=== PATIENT | female | born 1940 | race African-American/Black ===

== ENCOUNTER 2018-06-15 16:04 | Emergency (ER) | payer MEDICARE, OTHER ==
[~2018-06-15] VITALS: Ht 167.6 cm; Wt 61.0 kg
[2018-06-15 18:08] LABS: CHLORIDE 104 mEq/L (98-107)
[2018-06-15 18:09] LABS: PROTHROMBIN TIME 10.4 sec (9.1-11.1)
[2018-06-15 18:10] LABS: BASOPHILS % 0.6 % (0.0-2.0); HEMATOCRIT. 39.9 % (36.0-48.0); HEMOGLOBIN. 13.3 g/dL (12.0-16.0); LYMPHOCYTES % 19.9 % (20.0-50.0); MEAN CORPUSCULAR HEMOGLOBIN 28.4 pg (28.0-32.0); MEAN CORPUSCULAR VOLUME 85.4 fL (81.0-99.0); MEAN PLATELET VOLUME 9.7 fl (7.4-10.4); MONOCYTES % 5.8 % (2.0-8.0); NEUTROPHILS % 72.7 % (40.0-76.0); PLATELET 223 x1000/uL (130-400); RED BLOOD CELL COUNT 4.67 mill/uL (4.2-5.4); RED CELL DISTRIBUTION WIDTH 14.9 % (11.6-14.6)
[2018-06-15] MEDS ORDERED: ALBUTEROL (0.083%) 2.5MG/3ML NEB HHN STA (18:48)
[2018-06-15] MEDS ORDERED: PREDNISONE 20MG TABLET PO STA (18:48)
[2018-06-15] MEDS ORDERED: IPRATROPIUM BROMIDE (0.02%) 0.5MG/2.5ML NEB HHN STA (18:48)
[2018-06-15] MEDS ORDERED: ACETAMINOPHEN 325MG TABLET PO ONE (21:15)
[2018-06-15] MEDS ORDERED: TRAMADOL 50MG TABLET PO ONE (21:45)
[2018-06-15 22:10] VITALS: BP 120/81
== END 2018-06-15 22:30 | disposition home or self-care (01) ==
LOC: ER 16:04
DX: J40 Bronchitis, not specified as acute or chronic (principal); R53.1 Weakness; E11.9 Type 2 diabetes mellitus without complications; I10 Essential (primary) hypertension; Z86.73 Personal history of transient ischemic attack (TIA), and cerebral infarction without residual deficits; R41.82 Altered mental status, unspecified
CPT/HCPCS: 36415; 70450; 71045; 80053; 84484; 85025; 85610; 93005; 94640; 99285; J7512; J7611

== ENCOUNTER → 2020-01-05 | Outpatient (CLI) | payer MEDICARE, OTHER ==
[~2020-01-05] MED LIST: REGADENOSON 0.4 MG/5 ML IV SCH
== END | disposition home or self-care (01) ==
LOC: NM 07:13
PROVIDERS: ATTEND Internal Medicine Cardiovascular Disease
DX: J44.9 Chronic obstructive pulmonary disease, unspecified (principal); E78.00 Pure hypercholesterolemia, unspecified; R00.2 Palpitations
CPT/HCPCS: 78452; 93017; A9500; J2785

== ENCOUNTER 2020-05-08 02:42 | Emergency (ER) | payer MEDICARE, MEDICAID ==
[~2020-05-08] VITALS: Ht 170.2 cm; Wt 71.0 kg
[2020-05-08 05:58] LABS: CHLORIDE 109 mEq/L (98-107)
[2020-05-08 06:00] LABS: BASOPHILS % 0.8 % (0.0-2.0); EOSINOPHILS % 0.7 % (0.0-5.0); HEMATOCRIT. 38.7 % (36.0-48.0); HEMOGLOBIN. 13.1 g/dL (12.0-16.0); LYMPHOCYTES % 25.2 % (20.0-50.0); MEAN CORPUSCULAR HEMOGLOBIN 29.1 pg (28.0-32.0); MEAN CORPUSCULAR VOLUME 86.1 fL (81.0-99.0); MEAN PLATELET VOLUME 10.3 fl (7.4-10.4); MONOCYTES % 7.7 % (2.0-8.0); NEUTROPHILS % 65.6 % (40.0-76.0); PLATELET 180 x1000/uL (130-400); RED CELL DISTRIBUTION WIDTH 15.7 % (11.6-14.6)
[2020-05-08] MEDS ORDERED: HYDRALAZINE 20MG/ML VIAL IV ONE (06:45)
[2020-05-08 08:32] VITALS: BP 169/70
== END 2020-05-08 10:37 | disposition home or self-care (01) ==
LOC: ER 02:42
DX: I10 Essential (primary) hypertension (principal); E11.9 Type 2 diabetes mellitus without complications
CPT/HCPCS: 36415; 80053; 85025; 93005; 96374; 99285; J0360

== ENCOUNTER 2021-04-09 01:01 | Inpatient (IN) | payer MEDICARE, OTHER ==
[~2021-04-09] VITALS: Ht 182.9 cm; Wt 66.2 kg
[2021-04-09 01:53] LABS: BASOPHILS % 0.6 % (0.0-2.0); EOSINOPHILS % 1.3 % (0.0-5.0); HEMATOCRIT. 40.6 % (36.0-48.0); HEMOGLOBIN. 13.3 g/dL (12.0-16.0); LYMPHOCYTES % 25.1 % (20.0-50.0); MEAN CORPUSCULAR VOLUME 85.3 fL (81.0-99.0); MEAN PLATELET VOLUME 9.4 fl (7.4-10.4); MONOCYTES % 8.6 % (2.0-8.0); NEUTROPHILS % 64.4 % (40.0-76.0); PLATELET 214 x1000/uL (130-400); RED BLOOD CELL COUNT 4.76 mill/uL (4.2-5.4); RED CELL DISTRIBUTION WIDTH 15.5 % (11.6-14.6)
[2021-04-09 01:53] LABS: CLARITY URINE CLEAR (CLEAR); COLOR URINE YELLOW (YELLOW); KETONES URINE NEGATIVE (NEGATIVE); LEUKOCYTE ESTERASE URINE 1+ (NEGATIVE); NITRITE URINE NEGATIVE (NEGATIVE); OCCULT BLOOD URINE NEGATIVE (NEGATIVE); PH URINE 6.5 (4.5-8.0); PROTEIN URINE NEGATIVE (NEGATIVE); SPECIFIC GRAVITY URINE 1.005 (1.005-1.030); UROBILINOGEN URINE 0.2 E.U./dL (0.2-1.0)
[2021-04-09 01:57] LABS: CHLORIDE 97 mEq/L (98-107)
[2021-04-09 02:01] LABS: ETHANOL BLOOD < 10 mg/dL
[2021-04-09 02:04] LABS: LDL CHOLESTEROL 102 mg/dL (5-100)
[2021-04-09 02:08] LABS: *AMPHETAMINES SCREEN URINE NEGATIVE (NEGATIVE); *BARBITURATES SCREEN URINE NEGATIVE (NEGATIVE); *BENZODIAZEPINES SCREEN URINE NEGATIVE (NEGATIVE); *COCAINE SCREEN URINE NEGATIVE (NEGATIVE); CANNABINOID URINE SCREEN NEGATIVE (NEGATIVE); PHENCYCLIDINE URINE SCREEN NEGATIVE (NEGATIVE)
[2021-04-09 02:09] LABS: METHADONE URINE SCREEN NEGATIVE (NEGATIVE); OPIATES URINE SCREEN NEGATIVE (NEGATIVE)
[2021-04-09 02:18] LABS: PROTHROMBIN TIME 10.7 sec (9.6-11.0)
[2021-04-09 08:20] VITALS: BP 152/74
[2021-04-09] MEDS ORDERED: CHOL400D7 PO (09:23)
[2021-04-09] MEDS ORDERED: CLOP-31 PO (09:23)
[2021-04-09] MEDS ORDERED: METF-873 PO (09:23)
[2021-04-09] MEDS ORDERED: GLIP5TAB12 MT (09:23)
[2021-04-09] MEDS ORDERED: MAGN200T5 PO (09:23)
[2021-04-09] MEDS ORDERED: ASPI-1497 PO (09:23)
[2021-04-09] MEDS ORDERED: PRO1 PO (09:23)
[2021-04-09] MEDS ORDERED: DEXTROSE 50% WATER 50ML SYRINGE IV PRN (10:30)
[2021-04-09] MEDS ORDERED: ONDANSETRON HCL 4MG/2ML INJ IV PRN (10:30)
[2021-04-09] MEDS ORDERED: ACETAMINOPHEN 325MG TABLET PO PRN (10:30)
[2021-04-09] MEDS ORDERED: LORAZEPAM 2MG/ML CPJ IV SCH (11:00)
[2021-04-09] MEDS: BLOOD SUGAR DIAGNOSTIC STRIP TEST SCH ×3 (11:43→21:09)
[2021-04-09 12:00] VITALS: BP 161/65
[2021-04-09] MEDS: INSULIN LISPRO 100 UNITS/ML SUBCUT SCH ×3 (12:30→21:07)
[2021-04-09] MEDS: ENOXAPARIN 40MG/0.4ML SYR SUBCUT SCH (12:30)
[2021-04-09 16:00] VITALS: BP 146/83
[2021-04-09] MEDS: SODIUM CHLORIDE 0.9% 1,000 ML IV SCH (18:32)
[2021-04-09 20:00] VITALS: BP 149/75
[2021-04-09] MEDS: ATORVASTATIN CALCIUM 40MG TABLET PO SCH (21:09)
[2021-04-10] VITALS (8 sets, daily range): BP systolic 138–173; BP diastolic 59–82
[2021-04-10] MEDS: BLOOD SUGAR DIAGNOSTIC STRIP TEST SCH ×4 (06:23→20:53)
[2021-04-10] MEDS: SODIUM CHLORIDE 0.9% 1,000 ML IV SCH ×2 (06:23→19:40)
[2021-04-10] MEDS: INSULIN LISPRO 100 UNITS/ML SUBCUT SCH ×4 (06:23→20:53)
[2021-04-10 06:35] LABS: BASOPHILS % 0.7 % (0.0-2.0); EOSINOPHILS % 2.2 % (0.0-5.0); HEMOGLOBIN. 11.6 g/dL (12.0-16.0); LYMPHOCYTES % 28.1 % (20.0-50.0); MEAN CORPUSCULAR HEMOGLOBIN 28.3 pg (28.0-32.0); MEAN CORPUSCULAR VOLUME 85.5 fL (81.0-99.0); MEAN PLATELET VOLUME 9.3 fl (7.4-10.4); MONOCYTES % 11.2 % (2.0-8.0); NEUTROPHILS % 57.8 % (40.0-76.0); PLATELET 185 x1000/uL (130-400); RED CELL DISTRIBUTION WIDTH 15.5 % (11.6-14.6)
[2021-04-10 06:36] LABS: CHLORIDE 109 mEq/L (98-107)
[2021-04-10] MEDS: ASPIRIN 81MG TABLET PO SCH (09:33)
[2021-04-10] MEDS: ENOXAPARIN 40MG/0.4ML SYR SUBCUT SCH (10:19)
[2021-04-10] MEDS ORDERED: LORAZEPAM 2MG/ML CPJ IV SCH (15:00)
[2021-04-10] MEDS: ATORVASTATIN CALCIUM 40MG TABLET PO SCH (20:53)
[2021-04-11] VITALS: BP 144/65
[2021-04-11 04:00] VITALS: BP 149/88
[2021-04-11] MEDS: INSULIN LISPRO 100 UNITS/ML SUBCUT SCH ×3 (06:51→16:48)
[2021-04-11] MEDS: BLOOD SUGAR DIAGNOSTIC STRIP TEST SCH ×3 (06:51→16:48)
[2021-04-11 08:00] VITALS: BP 165/75
[2021-04-11] MEDS: SODIUM CHLORIDE 0.9% 1,000 ML IV SCH (09:47)
[2021-04-11] MEDS: ASPIRIN 81MG TABLET PO SCH (09:47)
[2021-04-11] MEDS: ENOXAPARIN 40MG/0.4ML SYR SUBCUT SCH (11:28)
[2021-04-11 12:00] VITALS: BP 171/80
[2021-04-11] MEDS ORDERED: AMLODIPINE 10MG TABLET PO SCH (12:30)
[2021-04-11 14:10] VITALS: BP 142/68
[2021-04-11 16:00] VITALS: BP 142/68
[2021-04-12] MEDS ORDERED: ENOXAPARIN 40MG/0.4ML SYR SUBCUT SCH (09:00)
== END 2021-04-11 19:59 | disposition home health service (06) | DRG 47 ==
LOC: ER 01:01 → 8WST 05:35 → EDBEDREQSVC 05:41 → EDBEDREQTM 05:41 → EDBEDREQ 05:41 → ENRESERV 07:16
PROVIDERS: ADMIT Internal Medicine; ATTEND Internal Medicine
DX: G45.9 Transient cerebral ischemic attack, unspecified (principal); E11.65 Type 2 diabetes mellitus with hyperglycemia; E87.8 Other disorders of electrolyte and fluid balance, not elsewhere classified; E87.1 Hypo-osmolality and hyponatremia; I69.354 Hemiplegia and hemiparesis following cerebral infarction affecting left non-dominant side; E78.5 Hyperlipidemia, unspecified; F41.9 Anxiety disorder, unspecified; I10 Essential (primary) hypertension; M48.00 Spinal stenosis, site unspecified; Z88.0 Allergy status to penicillin; Z88.8 Allergy status to other drugs, medicaments and biological substances; N64.9 Disorder of breast, unspecified; R63.6 Underweight; Z68.1 Body mass index [BMI] 19.9 or less, adult
CPT/HCPCS: 36415; 70551; 71045; 72141; 72148; 80048; 80053; 80305; 80320; 81003; 82962; 83721; 84484; 85025; 93005; 97110; 97162; 97166; 97535; 99291; J1650; J1815; J2060; J7030; G0480